=== PATIENT | female | born 1995 | race Caucasian/White ===

== ENCOUNTER 2017-10-14 23:48 | Emergency (ER) | payer OTHER, SELFPAY ==
[2017-10-15 00:05] VITALS: BP 158/115; PULSE 92; RESP 18; TEMP 36.8; O2SAT 99; BMI 35.2
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
[2017-10-15 01:27] VITALS: BP 158/90; PULSE 91; RESP 18; TEMP 36.8; O2SAT 99
== END 2017-10-15 01:28 | disposition home or self-care (01) ==
PROVIDERS: Emergency Provider Emergency Medicine
DX: R45.851 Suicidal ideations (principal)
CPT/HCPCS: 99282

== ENCOUNTER → 2018-05-19 10:00 | Outpatient (CLI) | payer OTHER, SELFPAY ==
--- NOTE | 2018-05-19 | DI.US.S_ITS ---
PROCEDURE: US PELVIC COMPLETE INDICATIONS: ABNORMAL UTERINE BLEEDING,CLINICALLY SMALL CERVIX TECHNIQUE: Real-time scanning was performed of the pelvic organs, with image documentation. Additional endovaginal scanning was necessary due to incomplete visualization of the adnexal and endometrial structures by transabdominal scanning. COMPARISON: None. FINDINGS: Transabdominal scanning: Limited scanning through the kidneys shows no hydronephrosis. No pathologic free abdominal or pelvic fluid. Endovaginal scanning: Uterus: Uterus is normal in size at 7.2 x 6.3 x 3.5 cm. bicornuate uterine morphology present. The endometrium measures between 8 and 10 mm mm in combined thickness. Ovaries: Normal ovaries bilaterally. No adnexal masses. IMPRESSION: Bicornuate uterine morphology otherwise no source for abnormal bleeding identified. Dictated by: Jonathan VICTOR Interpreted: Jose Dobbins MD on 05/19/2018 at 11:30 Approved by: Jose Dobbins M.D. on 05/19/2018 at 17:09
== END ==
PROVIDERS: Visit Provider Nurse Practitioner Adult Health
DX: N93.9 Abnormal uterine and vaginal bleeding, unspecified (principal); Q51.3 Bicornate uterus
CPT/HCPCS: 76830; 76856